=== PATIENT | male | born 1960 | race African-American/Black ===

== ENCOUNTER → 2016-12-19 | Outpatient (CLI) | payer OTHER ==
[~2016-12-19] VITALS: Ht 185.4 cm; Wt 115.2 kg
[~2016-12-19] MED LIST: GLUCOPHAGE500 MG PO; HYDROCHLOROTH12.5 M3 PO; INDOCIN25 MG PO; LISINOPRIL5 MG PO; METFORMIN HCL500 MG PO; NAPROSYN375 MG PO; NAPROSYN500 MG PO; NEURONTIN300 MG PO; NOHOMEMEDS; NORCO 5/3251 TABLET PO; PEN-VEE K,VEET500 MG PO; PERCOCET 5/31 TABLET PO; PRAVACHOL20 MG PO; PREDNISONE50 MG PO; PRINIVIL5 MG PO; VOLTAREN75 MG PO; ZANTAC150 MG PO; [UNRECOGNIZED DRUG - REMARK]
[2016-12-19 08:36] LABS: CHLORIDE 108 mEq/L (99-109); POTASSIUM 3.9 mEq/L (3.7-5.4); SODIUM 140 mEq/L (136-147)
[2016-12-19 08:37] LABS: GLUCOSE 125 mg/dL (70-99)
[2016-12-19 08:39] LABS: ANION GAP 10 MEQ/L (2-14)
[2016-12-19 08:41] LABS: GFR ESTIMATE (CALCULATED) > 59 mL/min/
[2016-12-19 08:42] LABS: UREA NITROGEN (BUN) 10 mg/dL (9-23)
[2016-12-19 08:50] LABS: POINT-OF-CARE METER ID UU13113694
== END | disposition home or self-care (01) ==
LOC: AMB 07:25
PROVIDERS: Internal Medicine; Nurse Anesthetist, Certified Registered
PROC: 0DJD8ZZ Inspection of Lower Intestinal Tract, Via Natural or Artificial Opening Endoscopic (ICD-10-PCS; principal; 2016-12-19)
DX: Z12.11 Encounter for screening for malignant neoplasm of colon (principal); Z53.8 Procedure and treatment not carried out for other reasons; I10 Essential (primary) hypertension; E78.1 Pure hyperglyceridemia; E11.3293 Type 2 diabetes mellitus with mild nonproliferative diabetic retinopathy without macular edema, bilateral; G47.33 Obstructive sleep apnea (adult) (pediatric); E66.9 Obesity, unspecified; Z68.33 Body mass index [BMI] 33.0-33.9, adult; F17.200 Nicotine dependence, unspecified, uncomplicated; F81.9 Developmental disorder of scholastic skills, unspecified; Z88.8 Allergy status to other drugs, medicaments and biological substances
CPT/HCPCS: 80048; 82948; 93005

== ENCOUNTER 2017-04-29 14:25 | Emergency (ER) | payer OTHER ==
[~2017-04-29] VITALS: Ht 182.9 cm; Wt 115.4 kg
[2017-04-29 15:34] LABS: EOSINOPHIL (%) 0.1 % (0-5); HEMATOCRIT 43.4 % (38.0-50.0); IMMATURE GRANULOCYTE (%) 0.4 % (0.0-0.7); INSTRUMENT ABS NEUTROPHIL CT 7.8 K/uL; LYMPHOCYTE COUNT 1.7 K/uL (1.0-2.8); MCH 31.3 PG (29.0-34.0); MCHC 33.6 G/DL (30.0-36.0); MCV 92.9 FL (86-99); MEAN PLAT.VOLUME 10.8 uM^3 (9.0-12.4); MONOCYTE (%) 11.3 % (3-12); MONOCYTE COUNT 1.2 K/uL (0-0.8); NEUTROPHIL (%) 71.9 % (45-76); NEUTROPHIL COUNT 7.8 K/uL (1.8-6.4); PLATELET COUNT 163 K/uL (156-360); RBC DIS.WIDTH-CV 12.4 % (11.8-14.6); RBC DIS.WIDTH-SD 42.5 % (39-53); RED BLOOD COUNT 4.67 M/uL (4.00-5.50); WHITE BLOOD COUNT 10.8 K/uL (4.1-10.2)
[2017-04-29 15:45] LABS: CHLORIDE 101 mEq/L (99-109); POTASSIUM 3.9 mEq/L (3.7-5.4); SODIUM 137 mEq/L (136-147)
[2017-04-29 15:47] LABS: GLUCOSE 95 mg/dL (70-99)
[2017-04-29 15:49] LABS: ANION GAP 12 MEQ/L (2-14); TOTAL BILIRUBIN 0.5 mg/dL (0.0-1.0)
[2017-04-29 15:51] LABS: ALKALINE PHOSPHATASE 73 IU/L (3-129); GFR ESTIMATE (CALCULATED) > 59 mL/min/
[2017-04-29 15:52] LABS: UREA NITROGEN (BUN) 8 mg/dL (9-23)
[2017-04-29 15:53] LABS: INFLUENZA A VIRAL ANTIGEN NEGATIVE; INFLUENZA B VIRAL ANTIGEN NEGATIVE
[2017-04-29 15:55] LABS: TROP-I INTERPRETATION NEGATIVE; TROPONIN-I 0.01 ng/mL (0.0-0.30)
[2017-04-29 17:53] LABS: ADD MIUA? NO; BILIRUBIN NEGATIVE; BLOOD NEGATIVE; COLOR YELLOW ((YELLOW)); GLUCOSE (STRIP) NEGATIVE; KETONES NEGATIVE; LEUKOCYTES NEGATIVE; NITRITE NEGATIVE; PROTEIN (STRIP) NEGATIVE; SPECIFIC GRAVITY 1.009 (1.000-1.030); UCUL ADDED? NO
[2017-04-29] MEDS ORDERED: LEVAQUIN750 MG PO (18:36)
[2017-04-29] MEDS ORDERED: PREDNISONE20 MG PO (18:36)
[2017-04-29] MEDS ORDERED: PROAIR HFA8.5 GM IH (18:36)
[2017-04-29 18:57] VITALS: BP 135/85
== END 2017-04-29 19:13 | disposition home or self-care (01) ==
LOC: EME 14:25
PROVIDERS: Emergency Medicine
DX: J40 Bronchitis, not specified as acute or chronic (principal); J98.01 Acute bronchospasm; R42 Dizziness and giddiness; I10 Essential (primary) hypertension; E11.9 Type 2 diabetes mellitus without complications; Z79.84 Long term (current) use of oral hypoglycemic drugs; F17.200 Nicotine dependence, unspecified, uncomplicated
CPT/HCPCS: 71020; 80053; 81003; 83605; 84484; 85025; 87040; 87502; 93005; 94640; 99281; 99285; J0456; J0696; J2930; J7030; J7050

== ENCOUNTER → 2017-06-21 | Outpatient (CLI) | payer MEDICARE, OTHER ==
[~2017-06-21] MED LIST changes: +LEVAQUIN750 MG PO; +PREDNISONE20 MG PO; +PROAIR HFA8.5 GM IH
== END | disposition home or self-care (01) ==
LOC: CDC
DX: Z01.810 Encounter for preprocedural cardiovascular examination (principal); M25.561 Pain in right knee; S83.241A Other tear of medial meniscus, current injury, right knee, initial encounter; M17.11 Unilateral primary osteoarthritis, right knee; I44.0 Atrioventricular block, first degree
CPT/HCPCS: 93000

== ENCOUNTER 2018-02-07 14:57 | Emergency (ER) | payer OTHER ==
[~2018-02-07] VITALS: Ht 185.4 cm; Wt 112.8 kg
[2018-02-07] MEDS ORDERED: NAPROXEN500 MG PO (19:25)
[2018-02-07 20:10] VITALS: BP 115/74
== END 2018-02-07 20:00 | disposition home or self-care (01) ==
LOC: EME 14:57
DX: M19.041 Primary osteoarthritis, right hand (principal); Z88.6 Allergy status to analgesic agent
CPT/HCPCS: 73130; 99281; 99283